=== PATIENT | female | born 1970 | race Caucasian/White ===

== ENCOUNTER 2018-09-30 21:50 | Emergency (ER) | payer MEDICAID, OTHER ==
[~2018-09-30] VITALS: Ht 154.9 cm; Wt 68.5 kg
--- NOTE | 2018-09-30 22:22 | NUR ---
BIB FROM HOME. AAOX4. BREATHING SHALLOW AND RAPID. CANT TALK IN FULL SENTENCE BECAUSE OF PAIN. C/O L RIB AREA PAIN EXTENDING TO SHOULDER AND BCAK. SHARP 10/10 S/P FALL HITTING THE L RIB AREA ON A RAISED METAL ELECTRIC OUTLET. DENIES HITTING HER HEAD, NO KO. JESSICA BUSTOS AT BEDSIDE. AWAITING ORDERS
[2018-09-30] MEDS ORDERED: HYDROCODONE/APAP 10/325MG 1 EA TABLET ONE (22:30)
[2018-09-30] MEDS ORDERED: HYDROCODONE/APAP 10/325MG 1 EA TABLET PO ONE (22:30)
--- NOTE | 2018-09-30 22:54 | NUR ---
WAIVER SIGNED BY PT. PT REPORTS HAVING TOTAL HYTERECTOMY
--- NOTE | 2018-09-30 22:55 | NUR ---
XRAY AT BEDSIDE
[2018-09-30] MEDS ORDERED: CYCLOBENZAPRINE 10 MG TABLET ONE (23:26)
[2018-09-30] MEDS ORDERED: CYCLOBENZAPRINE 10 MG TABLET PO ONE (23:30)
--- NOTE | 2018-10-01 00:20 | NUR ---
Patient discharged to home in stable condition. Written and verbal after care instructions given. Patient verbalizes understanding of instruction.
[2018-10-01 00:23] VITALS: BP 76/125
== END 2018-10-01 00:56 | disposition home or self-care (01) ==
LOC: ER 21:52
DX: S13.4XXA Sprain of ligaments of cervical spine, initial encounter (principal); S20.212A Contusion of left front wall of thorax, initial encounter; S09.8XXA Other specified injuries of head, initial encounter; M25.512 Pain in left shoulder; M25.552 Pain in left hip; M06.9 Rheumatoid arthritis, unspecified; M32.9 Systemic lupus erythematosus, unspecified; Z88.6 Allergy status to analgesic agent; W01.0XXA Fall on same level from slipping, tripping and stumbling without subsequent striking against object, initial encounter; Y93.01 Activity, walking, marching and hiking; Y92.89 Other specified places as the place of occurrence of the external cause; Y99.8 Other external cause status
CPT/HCPCS: 71100-TC; 73030-TC; 73502